=== PATIENT | male | born 1965 | race Caucasian/White ===

== ENCOUNTER 2018-04-20 18:23 | Emergency (ER) | payer OTHER ==
[2018-04-20] MEDS ORDERED: PROVENTIL 2.5 MG/3 ML NEB IH ONE ×2 (18:46→18:53)
[2018-04-20] MEDS ORDERED: solu-MEDROL 125 MG IV ONE (18:48)
--- NOTE | 2018-04-20 18:50 | ERPHSYRPT ---
- History of Present Illness Time Seen by Provider: 04/20/18 18:35 Source: patient, family Exam Limitations: no limitations Patient Subjective Stated Complaint: sob,fever since sat. Triage Nursing Assessment: pt alert, resp labored with excertion, chest clear. pt sweating and pale Physician History: 52 y/o white male with h/o asthma on advair and no rescue inhalers, presents with cough and intermittent fever for two days. no hemoptysis. has occasional cp with cough. Timing/Duration: day(s) (2) Cough Quality/Degree: moderate, dry cough Possible Cause: no prior episodes Modifying Factors: Improves With: coughing Associated Symptoms: fever, cough, shortness of breath, No chills, No chest pain /soreness, No nasal congestion, No nasal drainage, No sore throat, No wheezing Allergies/Adverse Reactions: No Known Drug Allergies Allergy (Unverified 04/20/18 18:34) Home Medications: Fluticasone/Salmeterol Disc [Advair 250-50 Diskus 14 Dose] 1 ea DAILY [History] Omeprazole 20 MG [Prilosec 20 mg] 20 mg DAILY 04/20/18 [History] Hx Influenza Vaccination/Date Given: No Hx Pneumococcal Vaccination/Date Given: No Immunizations Up to Date: Yes - Review of Systems Constitutional: Fever Eyes: No Symptoms Ears, Nose, & Throat: No Symptoms Respiratory: Cough, No Dyspnea, No Stridor, No Wheezing Cardiac: No Symptoms, No Chest Pain, No Palpitations, No Syncope Abdominal/Gastrointestinal: No Symptoms, No Abdominal Pain, No Nausea, No Vomiting, No Diarrhea Genitourinary Symptoms: No Symptoms, No Dysuria, No Frequency, No Hematuria Musculoskeletal: No Symptoms, No Back Pain, No Neck Pain, No Deformity Skin: No Symptoms Neurological: No Symptoms Psychological: No Symptoms Endocrine: No Symptoms Hematologic/Lymphatic: No Symptoms Immunological/Allergic: No Symptoms All Other Systems: Reviewed and Negative - Past Medical History Pertinent Past Medical History: Yes Neurological History: No Pertinent History ENT History: No Pertinent History Cardiac History: No Pertinent History Respiratory History: Asthma Endocrine Medical History: No Pertinent History Musculoskeletal History: No Pertinent History GI Medical History: No Pertinent History, GERD History: No Pertinent History Psycho-Social History: No Pertinent History Male Reproductive Disorders: No Pertinent History - Past Surgical History Past Surgical History: Yes Neuro Surgical History: No Pertinent History Cardiac: No Pertinent History Respiratory: No Pertinent History Gastrointestinal: No Pertinent History Genitourinary: No Pertinent History Musculoskeletal: Orthopedic Surgery Male Surgical History: No Pertinent History Other Surgical History: right knee - Social History Smoking Status: Never smoker Exposure to second hand smoke: No Drug Use: none Patient Lives Alone: No - Nursing Vital Signs Nursing Vital Signs: Initial Vital Signs Respiratory Rate 32 H 04/20/18 18:27 O2 Sat by Pulse Oximetry 94 L 04/20/18 18:27 Pain Scale Pain Intensity 6 - Physical Exam General Appearance: mild distress, alert, anxiety Eye Exam: PERRL/EOMI Ears, Nose, Throat Exam: normal ENT inspection, moist mucous membranes Neck Exam: normal inspection, non-tender, supple, full range of motion Respiratory Exam: airway intact, diminished breath sounds, wheezing, No respiratory distress, No accessory muscle use, No rhonchi, No stridor Cardiovascular Exam: regular rate/rhythm, normal heart sounds Gastrointestinal/Abdomen Exam: soft, normal bowel sounds, No tenderness, No guarding Rectal Exam: not done Back Exam: normal inspection, normal range of motion, No CVA tenderness, No vertebral tenderness Extremity Exam: normal inspection, normal range of motion, pelvis stable Neurologic Exam: alert, oriented x 3, cooperative, 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 Skin Exam: normal color, warm, dry, diaphoresis Lymphatic Exam: No adenopathy SpO2 Interpretation: borderline oxygenation SpO2: 94 Oxygen Delivery: Room Air Ordered Tests: Active Orders 24 hr Category Date Time Status Extruding Machine Operator STAT Care 04/20/18 18:48 Active IV Insertion STAT Care 04/20/18 18:46 Active CHEST 1 VIEW (PORTABLE) Stat Exams 04/20/18 18:47 Taken CHEST WITH CONTRAST [CT] Stat Exams 04/20/18 20:48 Taken CBC W DIFF Stat Lab 04/20/18 19:02 Completed CMP Stat Lab 04/20/18 19:02 Completed D-DIMER QUANTITATION Stat Lab 04/20/18 19:56 Completed NT PRO BNP Stat Lab 04/20/18 19:02 Completed Peak Expiratory Flow Rate ONCE RT 04/20/18 19:01 Active Respiratory Therapy Assessment DAILY RT 04/20/18 19:01 Active Medication Summary Discontinued Medications Generic Name Dose Route Start Last Admin Trade Name Freq PRN Reason Stop Dose Admin Albuterol Sulfate 2.5 mg 04/20/18 18:46 04/20/18 18:55 Proventil 2.5 Mg/3 Ml Neb IH 04/20/18 18:47 2.5 mg STAT ONE Administration Albuterol Sulfate Confirm 04/20/18 18:53 Proventil 2.5 Mg/3 Ml Neb Administered 04/20/18 18:54 Dose 2.5 mg IH .STK-MED ONE Ceftriaxone Sodium/Dextrose 1 g in 50 mls @ 100 mls/hr 04/20/18 19:57 22:59 Rocephin 1 Gm-D5w 50 Ml Bag IV 04/20/18 20:26 Infused STAT STA Infusion Ceftriaxone Sodium/Dextrose Confirm 04/20/18 20:02 Rocephin 1 Gm-D5w 50 Ml Bag Administered 04/20/18 20:03 Dose 1 g in 50 mls @ ud IV .STK-MED ONE Methylprednisolone Sodium Succinate 125 mg 04/20/18 18:48 04/20/18 18:56 Solu-Medrol 125 Mg IV 04/20/18 18:49 125 mg STAT ONE Administration Methylprednisolone Sodium Succinate Confirm 04/20/18 18:55 Solu-Medrol 125 Mg Administered 04/20/18 18:56 Dose 125 mg .ROUTE .STK-MED ONE Lab/Rad Data: Laboratory Result Diagrams 04/20/18 19:02 04/20/18 19:02 Laboratory Results 04/20/18 04/20/18 04/20/18 Range/Units 19:56 19:02 19:02 WBC (4.0-10.5) K/mm3 RBC (4.1-5.6) M/mm3 Hgb (12.5-18.0) gm/dl Hct (42-50) % MCV (78-100) fl MCH (26-32) pg MCHC (32-36) g/dl RDW (11.5-14.0) % Plt Count (150-450) K/mm3 MPV (6-9.5) fl Gran % (36.0-66.0) % Eos # (Auto) (0-0.5) Absolute Lymphs (auto) (1.0-4.6) Absolute Monos (auto) (0.0-1.3) Lymphocytes % (24.0-44.0) % Monocytes % (0.0-12.0) % Eosinophils % (0.00-5.0) % Basophils % (0.0-0.4) % Absolute Granulocytes (1.4-6.9) Basophils # (0-0.4) D-Dimer 1552 H* (215-500) ng/mL Sodium 139 (137-145) mmol/L Potassium 3.8 (3.5-5.1) mmol/L Chloride 104 (98-107) mmol/L Carbon Dioxide 23 (22-30) mmol/L Anion Gap 16.5 H (5-15) MEQ/L BUN 15 (9-20) mg/dL Creatinine 1.30 H (0.66-1.25) mg/dL Estimated GFR > 60.0 ML/MIN Glucose 115 H (74-106) mg/dL Calcium 9.5 (8.4-10.2) mg/dL Total Bilirubin 0.80 (0.2-1.3) mg/dL AST 19 (17-59) U/L ALT 21 (0-50) U/L Alkaline Phosphatase 109 (38-126) U/L NT-Pro-B Natriuret Pep 103 (0-900) pg/mL Serum Total Protein 7.7 (6.3-8.2) g/dL Albumin 4.2 (3.5-5.0) g/dL Influenza Type A Ag NEGATIVE (NEGATIVE) Influenza Type B Ag NEGATIVE (NEGATIVE) RSV (PCR) NEGATIVE (Negative) 04/20/18 Range/Units 19:02 WBC 12.2 H (4.0-10.5) K/mm3 RBC 5.68 H (4.1-5.6) M/mm3 Hgb 16.7 (12.5-18.0) gm/dl Hct 49.1 (42-50) % MCV 86.4 (78-100) fl MCH 29.4 (26-32) pg MCHC 34.0 (32-36) g/dl RDW 13.7 (11.5-14.0) % Plt Count 234 (150-450) K/mm3 MPV 10.7 H (6-9.5) fl Gran % 80.7 H (36.0-66.0) % Eos # (Auto) 0.04 (0-0.5) Absolute Lymphs (auto) 1.40 (1.0-4.6) Absolute Monos (auto) 0.90 (0.0-1.3) Lymphocytes % 11.4 L (24.0-44.0) % Monocytes % 7.4 (0.0-12.0) % Eosinophils % 0.3 (0.00-5.0) % Basophils % 0.2 (0.0-0.4) % Absolute Granulocytes 9.87 H (1.4-6.9) Basophils # 0.02 (0-0.4) D-Dimer (215-500) ng/mL Sodium (137-145) mmol/L Potassium (3.5-5.1) mmol/L Chloride (98-107) mmol/L Carbon Dioxide (22-30) mmol/L Anion Gap (5-15) MEQ/L BUN (9-20) mg/dL Creatinine (0.66-1.25) mg/dL Estimated GFR ML/MIN Glucose (74-106) mg/dL Calcium (8.4-10.2) mg/dL Total Bilirubin (0.2-1.3) mg/dL AST (17-59) U/L ALT (0-50) U/L Alkaline Phosphatase (38-126) U/L NT-Pro-B Natriuret Pep (0-900) pg/mL Serum Total Protein (6.3-8.2) g/dL Albumin (3.5-5.0) g/dL Influenza Type A Ag (NEGATIVE) Influenza Type B Ag (NEGATIVE) RSV (PCR) (Negative) - Progress Progress: improved, re-examined Air Movement: good Progress Note: 04/20/18 23:08 cxr-right pneumonia ct chest- no pulm embolism; right pneumonia Blood Culture(s) Obtained: No Antibiotics given: Yes Counseled pt/family regarding: lab results, diagnosis, need for follow-up, rad results - Departure Time of Disposition: 23:09 Departure Disposition: Home Clinical Impression: Right lower lobe pneumonia, Right upper lobe pneumonia Condition: Stable Critical Care Time: No Referrals: [facility] [Primary Care Provider] - Additional Instructions: drink plenty of fluids. follow up with primary doctor for further management Prescriptions: Albuterol 8 gm Mdi Hfa [Ventolin Hfa MDI] 8 gm IH Q4H #1 [email or web address] Hydrocodone Bit/Acetaminophen [Hydrocodone-Acetaminophen Soln] 10 ml PO Q6H # 120 ml Levofloxacin [Levaquin 500 MG Tablet] 500 mg PO DAILY #7 tablet
[2018-04-20] MEDS ORDERED: solu-MEDROL 125 MG ONE (18:55)
[2018-04-20 19:07] LABS: BASOPHIL % 0.2 % (0.0-0.4); Basophil (Absolute #) 0.02 (0-0.4); Eosinophil % 0.3 % (0.00-5.0); Eosinophil (Absolute #) 0.04 (0-0.5); Granulocyte Absolute (ANC) 9.87 (1.4-6.9); Granulocytes % 80.7 % (36.0-66.0); Hematocrit 49.1 % (42-50); Hemoglobin 16.7 gm/dl (12.5-18.0); Lymphocytes % 11.4 % (24.0-44.0); Mean Cell Volume 86.4 fl (78-100); Mean Corpuscular Hemoglobin 29.4 pg (26-32); Mean Platelet Volume 10.7 fl (6-9.5); Monocytes % 7.4 % (0.0-12.0); Platelet Count 234 K/mm3 (150-450); Red Blood Count 5.68 M/mm3 (4.1-5.6); Red Cell Distribution Width 13.7 % (11.5-14.0); White Blood Count 12.2 K/mm3 (4.0-10.5)
[2018-04-20 19:37] LABS: ALBUMIN 4.2 g/dL (3.5-5.0); ALKALINE PHOSPHATASE 109 U/L (38-126); ANION GAP 16.5 MEQ/L (5-15); BLOOD UREA NITROGEN 15 mg/dL (9-20); CHLORIDE 104 mmol/L (98-107); Calcium 9.5 mg/dL (8.4-10.2); Carbon Dioxide 23 mmol/L (22-30); Glucose 115 mg/dL (74-106); NT PRO BNP 103 pg/mL (0-900); Potassium 3.8 mmol/L (3.5-5.1); SGOT/AST 19 U/L (17-59); SGPT/ALT 21 U/L (0-50); SODIUM 139 mmol/L (137-145); Total Protein 7.7 g/dL (6.3-8.2)
[2018-04-20 19:39] LABS: INFLUENZA A NEGATIVE (NEGATIVE); INFLUENZA B NEGATIVE (NEGATIVE); RESPIRATORY SYNCTIAL VIRUS NEGATIVE (Negative)
[2018-04-20] MEDS ORDERED: ROCEPHIN 1 Gm-D5w 50 ml Bag** 1 G/50 ML IVPB IV STA (19:57)
[2018-04-20] MEDS ORDERED: ROCEPHIN 1 Gm-D5w 50 ml Bag** 1 G/50 ML IVPB IV ONE (20:02)
[2018-04-20 23:12] VITALS: O2SAT 94
[2018-04-20] MEDS ORDERED: HYDROCODONE-ACETAMIN 2.5-108/5 ML SOLUTION PO STA (23:12)
[2018-04-20] MEDS ORDERED: HYDROCODONE-ACETAMIN 2.5-108/5 ML SOLUTION ONE (23:13)
[2018-04-20 23:46] VITALS: BP 111/80; PULSE 83
--- NOTE | 2018-04-21 09:27 | XRAY ---
Indication: Short of breath, cough, fever, and elevated d-dimer. Multiple contiguous axial images obtained through the chest using 80 cc Isovue 370 contrast and PE protocol. Comparison: CT high resolution chest exam August 16, 2009. There is satisfactory opacification of the pulmonary arteries to include the lobar and segmental branches. No filling defect or pulmonary embolus. Heart is not enlarged. No pathologic mediastinal/hilar lymphadenopathy. Examination of the lung parenchyma demonstrates new right lower lobe and lesser degree posterior right upper lobe airspace disease without effusion. Left lung dependent atelectasis. Bony thorax intact with mild degenerative changes throughout the spine. Limited upper abdomen again demonstrates multiple gallstones and mild fatty liver. New 1.4 cm left lobe hepatic hemangioma, 1.7 cm inferior right lobe hepatic cyst, 4 mm right renal cortical cyst, and 13.5 cm splenomegaly. Impression: 1. Negative pulmonary embolus. 2. New right lung air space disease as detailed. 3. Incidental fatty liver, cholelithiasis, hepatic hemangioma, hepatic cyst, right renal cyst, and splenomegaly. Comment: Preliminary interpretation was made by [facility]. No critical discrepancy. CT DI 28.13
--- NOTE | 2018-04-21 09:30 | XRAY ---
Indication: Fever and cough. Flu symptoms. Comparison: August 15, 2009. Portable chest demonstrates new right mid to lower lung infiltrate. Remaining heart and lungs unremarkable. Bony thorax intact again with mild degenerative changes.
== END 2018-04-20 23:31 | disposition home or self-care (01) ==
LOC: ED 18:23
DX: J18.8 Other pneumonia, unspecified organism (principal)
CPT/HCPCS: 36415; 71045; 71260; 80053; 83880; 85025; 85379; 87631; 93041; 94150; 94640; 96365; 96374; 99284; J0696; J2930; J7609; A9270-GY